=== PATIENT | female | born 1985 | race Caucasian/White ===

== ENCOUNTER 2016-11-24 19:14 | Inpatient (IN) | payer BC ==
[~2016-11-24] VITALS: Ht 175.3 cm; Wt 97.5 kg
[~2016-11-24 19:14] MED LIST: PERC5TAB12 PO; PRENCAP6 PO
[2016-11-24] MEDS ORDERED: LACTATED RINGER'S 1000 ML INJ 1,000 ML IV PRN (21:50)
--- NOTE | 2016-11-24 21:50 | PD ---
HPI Chief Complaint contractions Travel History International Travel<30 Days: No Contact w/Intl Traveler<30Days: No Known Affected Area: No History of Present Illness HPI This is a 31y/o at 38w5d who presented to the [facility] with c/o contractions q 5 minutes apart. She denies vaginal bleeding or leakage of fluid with reports of active movements. Pt states she was examined in the office with a VE of 5cm. care with Dr. Lee, uncomplicated per patient. Para: 1 : 2 History Past Medical History Medical History: Denies Significant Hx Obstetric History Obstetric History 10/20/2013 38w3d [id number] Male Past Surgical History Narrative Surgical h/o [place] teeth extraction age 14 Social History Alcohol Use: No Tobacco Use: No Substance Abuse: No Allergies-Medications (Allergen,Severity, Reaction): Coded Allergies: Penicillin (Verified Allergy, Severe, Hives, 04/20/13) Home Meds Reported Medications Mv & Min W/Fe Fumarat ( 1) Cap1 Cap PO DAILY 04/20/13 Discontinued Scripts Oxycodone-Acetaminophen 5-325 mg (Percocet 5-325 mg)1 Tab Tab1 Tab PO Q4H PRN ( PAIN SCALE 1 TO 4) #20 TAB Prov:Porter Blunt MD 10/22/13 Review of Systems Except as stated in HPI: all other systems reviewed are Neg Physical Exam Narrative GENERAL: Well-nourished, well-developed patient. SKIN: Warm and dry. HEAD: Normocephalic and atraumatic. EYES: No scleral icterus. No injection or drainage. ENT: No nasal drainage noted. Mucous membranes pink. Airway patent. NECK: Supple, trachea midline. No JVD. CARDIOVASCULAR: Regular rate and rhythm without murmurs, gallops, or rubs. RESPIRATORY: Breath sounds equal bilaterally. No accessory muscle use. BREASTS: Bilateral exam showed no masses , no retractions, no nipple discharge. ABDOMEN/GI: Abdomen soft, non-tender, bowel sounds present, no rebound, no guarding Gravid to 38 weeks size GENITOURINARY: External Genitalia: intact and normal in appearance Cervix: 3-4/50/-2 to 4-5/50/-2 Membranes: intact Uterine Contractions: 3-5 minutes apart FHT's: Category: 1 EXTREMITIES: No cyanosis or edema. BACK: Nontender without obvious deformity. No CVA tenderness. NEUROLOGICAL: Awake and alert. Motor and sensory grossly within normal limits. Five out of 5 muscle strength in all muscle groups. Normal speech. Data Data Vital Signs Reviewed: Yes Orders Vital Signs (Adult) .ON ADMISSION (11/24/16 21:43) ^ Labor Status (11/24/16 21:43) ^ Non Stress Test (11/24/16 21:43) MDM Medical Record Reviewed: Yes Narrative Course / MDM 31y/o at 38w5d with c/o contractions. -reassuring status -cervical change noted after ambulation -admit for delivery -case d/w Dr. Ly Plan admit for delivery Diagnosis Diagnosis: Primary Impression: 38 weeks gestation of Porsche Miranda MD Nov 24, 2016 21:50
[2016-11-24] MEDS ORDERED: MINERAL OIL 10 ML VIAL TOPICAL PRN (22:00)
[2016-11-24] MEDS ORDERED: SODIUM CHLORID 0.9% 500 ML INJ 500 ML IV PRN (22:00)
[2016-11-24] MEDS ORDERED: CITRIC ACID-SODIUM CITRATE LIQ 30 ML UDC PO SCH (22:00)
[2016-11-24] MEDS ORDERED: OXYTOCIN 30 UNITS-500ML PREMIX 500 ML IV ONE (22:00)
[2016-11-24] MEDS ORDERED: LIDOCAINE HCL 1% 50 ML VIAL INFIL PRN (22:00)
[2016-11-24] MEDS ORDERED: LIDOCAINE HCL 1% 50 ML VIAL I-DERMAL PRN (22:00)
[2016-11-24] MEDS ORDERED: SODIUM CHLOR 0.9% 1000 ML INJ 1,000 ML IV PRN (22:10)
[2016-11-24 22:15] VITALS: BP 139/92; PULSE 20; PULSE 84; RESP 18; TEMP 97.6
[2016-11-24 23:11] LABS: AUTOMATED NEUTROPHIL # 6.8 TH/MM3 (1.8-7.7); BASOPHIL % 0.3 % (0.0-2.0); EOSINOPHIL # 0.1 TH/MM3 (0-0.4); EOSINOPHIL % 1.1 % (0.0-4.0); HEMATOCRIT 36.4 % (35.0-46.0); HEMO FLAGS DIFF FINAL; LYMPH % 29.8 % (9.0-44.0); LYMPHOCYTE # 3.3 TH/MM3 (1.0-4.8); MEAN CELL VOLUME 89.5 FL (80.0-100.0); MEAN CORPUSCULAR HEMOGLOBIN 29.8 PG (27.0-34.0); MEAN CORPUSCULAR HGB CONC 33.3 % (32.0-36.0); MONO % 7.6 % (0.0-8.0); NEUT % 61.2 % (16.0-70.0); PLATELET COUNT 248 TH/MM3 (150-450); RED BLOOD COUNT 4.07 MIL/MM3 (4.00-5.30); RED CELL DISTRIBUTION WIDTH 14.2 % (11.6-17.2); WHITE BLOOD COUNT 11.1 TH/MM3 (4.0-11.0)
[2016-11-24 23:15] LABS: BLOOD, URINE NEG (NEG); GLUCOSE,URINE NEG (NEG); KETONE, URINE NEG (NEG); NITRITE,URINE NEG (NEG); SQUAMOUS EPITHELIAL CELL URINE <1 /hpf (0-5); URINE COLOR YELLOW (YELLW/STRAW)
[2016-11-24 23:16] LABS: COMMENT (UR) CATH-CULT NOT IND; CULTURE IF INDICATED CATH CULTURE NOT IND
[2016-11-24] MEDS: LACTATED RINGER'S 1000 ML INJ 1,000 ML IV SCH (23:26)
[2016-11-25] VITALS (68 sets, daily range): BP systolic 110–155; BP diastolic 55–137; PULSE 71–158; RESP 16–20; TEMP 97.9–98.2
[2016-11-25] MEDS ORDERED: fentaNYL 2MCG-BUPIV 0.125% INJ 100 ML ONE (01:28)
[2016-11-25] MEDS ORDERED: DO NOT ADMINISTER ANTICOAGULANTS PRN (01:30)
[2016-11-25] MEDS ORDERED: NO SYSTEM NARCOTICS PRN (01:30)
[2016-11-25] MEDS ORDERED: fentaNYL 2MCG-BUPIV 0.125% 100 ML EPIDURAL SCH (01:30)
[2016-11-25] MEDS ORDERED: ePHEDrine/NS 25 MG/5 ML SYR IV PRN (02:15)
[2016-11-25] MEDS: LACTATED RINGER'S 1000 ML INJ 1,000 ML IV SCH (02:47)
[2016-11-25] MEDS ORDERED: OXYTOCIN 30 UNITS-500ML PREMIX 500 ML ONE (07:13)
[2016-11-25] MEDS ORDERED: OXYTOCIN 30 UNITS/NS 500ML PREMIX IV SCH (08:00)
--- NOTE | 2016-11-25 11:08 | PD.OB.DELI ---
Delivery Date: Nov 25, 2016 Anesthesia: Epidural Episiotomy: None Vaginal Delivery: Normal Presentation: Occiput anterior Nuchal Cord: None Delayed cord clamping (45 sec): Yes Infant: Female, Single One Minute : 8 Five Minute : 9 Weight: 8-2 Placenta: Spontaneous delivery, Intact, 3 vessel cord Laceration: Perineal laceration, 2 deg (repaired with 2-0 chromic in usual fashion) Devaughn Lee MD Nov 25, 2016 11:08
[2016-11-25] MEDS ORDERED: OXYTOCIN 10 UNIT/ML AMP XX PRN (11:15)
[2016-11-25] MEDS ORDERED: oxyCODONE/ACETAMINOPHEN 5 MG/325 MG TAB PO PRN ×2 (11:15)
[2016-11-25] MEDS ORDERED: OXYTOCIN 30 UNITS-500ML PREMIX 500 ML IV ONE (11:15)
[2016-11-25] MEDS ORDERED: SODIUM CHLORIDE 0.9% FLUSH 10 ML FLUSH IV FLUSH PRN (11:15)
[2016-11-25] MEDS ORDERED: WITCH HAZEL 50%/GLYCERIN 12.5% 40 PAD JAR TOPICAL PRN (11:15)
[2016-11-25] MEDS ORDERED: ALUMINUM/MAGNESIUM/SIMETH 30 ML CUP PO PRN (11:15)
[2016-11-25] MEDS ORDERED: DOCUSATE SODIUM 50 MG/SENNA 8.6 MG TAB PO PRN (11:15)
[2016-11-25] MEDS ORDERED: ONDANSETRON ODT 4 MG TAB PO PRN (11:15)
[2016-11-25] MEDS ORDERED: BENZOCAINE 20% TOPICAL SPRAY 60 ML CAN TOPICAL PRN (11:15)
[2016-11-25] MEDS ORDERED: ZOLPIDEM TARTRATE 5 MG TAB PO PRN (11:15)
[2016-11-25] MEDS ORDERED: OXYTOCIN 30 UNITS-500ML PREMIX 500 ML IV SCH (11:15)
[2016-11-25] MEDS ORDERED: DIPHTH/TETANUS/ACEL PERTUSSIS (BOOSTER) 0.5 ML VIAL/PFS IM ONE (16:00)
[2016-11-25] MEDS ORDERED: MEASLES, MUMPS, RUBELLA VACCINE 0.5 ML VIAL SQ ONE (16:00)
[2016-11-25] MEDS: IBUPROFEN 600 MG TAB PO PRN (20:50)
[2016-11-25] MEDS: ACETAMINOPHEN 325 MG TAB PO PRN (20:50)
[2016-11-25] MEDS ORDERED: SODIUM CHLORIDE 0.9% FLUSH 10 ML FLUSH IV FLUSH SCH (21:00)
[2016-11-26] MEDS: IBUPROFEN 600 MG TAB PO PRN (03:12)
[2016-11-26] MEDS: ACETAMINOPHEN 325 MG TAB PO PRN (03:13)
[2016-11-26 07:50] VITALS: BP 124/73; PULSE 87; RESP 18; TEMP 98.1
[2016-11-26] MEDS ORDERED: IBUP-232 PO (11:25)
[2016-11-26] MEDS ORDERED: OXYC1TAB63 PO (11:25)
--- NOTE | 2016-11-26 11:26 | HHI.DCPOC ---
Discharge Care Plan Diagnosis: (1) Spontaneous vaginal delivery Your Health Problems Are: Vaginal delivery Report Symptoms to Your Doctor -Temperature above 100.5 degrees -Redness, of incision or excessive or foul smelling drainage -Unusual pain or calf pain -Increased vaginal bleeding -Painful or difficulty urinating -Feelings of extreme sadness or anxiety after 2 weeks Goals to Promote Your Health * To prevent worsening of your condition and complications * To maintain your health at the optimal level Directions to Meet Your Goals Take your medications as prescribed Follow your dietary instruction Follow activity as directed Ensure plenty of rest for recovery Drink fluids for hydration Keep your appointments as scheduled Take your immunizations and boosters as scheduled If your symptoms worsen call your PCP, if no PCP go to Urgent Care Center or Emergency Room Smoking is Dangerous to Your Health. Avoid second hand smoke Call the 24-hour crisis hotline for domestic abuse at Devaughn Lee MD Nov 26, 2016 11:26
--- NOTE | 2016-11-26 11:29 | HHI.DS ---
Admission Date Nov 24, 2016 at 22:07 Admitting Diagnosis Diagnosis: Delivery Date: Nov 25, 2016 Vaginal Delivery: Normal : Female, Single Brief History This is a 31y/o at 38w5d who presented to the [facility] with c/o contractions q 5 minutes apart. She denies vaginal bleeding or leakage of fluid with reports of active movements. Pt states she was examined in the office with a VE of 5cm. care with Dr. Lee, uncomplicated per patient. Hospital Course pt was admitted with srom and labor. she progressed to complete and had an . by ppd 1, pt was voiding, passing gas, with good pain control and requested d/c home. Pt Condition on Discharge: Stable Discharge Disposition: Discharge Home Discharge Instructions Diet Instructions: As Tolerated, No Restrictions Additional Diet Instructions: Drink at least 8 - 16 oz bottles of water a day Activities You Can Perform: Shower Only-No Bath, Sitz Bath Activities to Avoid: Lifting/Bending, Sexual Activity Additional Activity Instruc.: No driving until off pain medications Do not lift anything heavier than your baby in an carrier Devaughn Lee MD Nov 26, 2016 11:29
== END 2016-11-26 13:59 | disposition home or self-care (01) | DRG 775 ==
LOC: HOBED 19:14 → H2EA 22:07 → H1EA 11-25 14:32
PROVIDERS: ADMIT Obstetrics & Gynecology; ATTEND Obstetrics & Gynecology
PROC: 10E0XZZ Delivery of Products of Conception, External Approach (ICD-10-PCS; principal; 2016-11-24)
PROC: 0KQM0ZZ Repair Perineum Muscle, Open Approach (ICD-10-PCS; 2016-11-24)
PROC: 3E0R3CZ (ICD-10-PCS; 2016-11-24)
PROC: 00HU33Z Insertion of Infusion Device into Spinal Canal, Percutaneous Approach (ICD-10-PCS; 2016-11-24)
DX: O70.1 Second degree perineal laceration during delivery (principal); Z37.0 Single live birth; Z3A.38 38 weeks gestation of pregnancy
CPT/HCPCS: 59025; 81001; 85025; 86900; 86901; J2590; J3010; J7120